=== PATIENT | male | born 1975 | race Caucasian/White ===

== ENCOUNTER 2024-02-20 16:33 | Emergency (ER) | payer MEDICAID ==
[~2024-02-20] VITALS: Ht 170.2 cm; Wt 120.2 kg
[2024-02-20 17:20] VITALS: O2SAT 100
== END 2024-02-20 21:00 | disposition left against medical advice (07) ==
LOC: ER 16:33
DX: F41.9 Anxiety disorder, unspecified (principal); E11.9 Type 2 diabetes mellitus without complications; G47.30 Sleep apnea, unspecified; Z53.21 Procedure and treatment not carried out due to patient leaving prior to being seen by health care provider
CPT/HCPCS: A4606; A4663